=== PATIENT | female | born 2000 | race Caucasian/White ===

== ENCOUNTER 2023-05-15 15:13 | Inpatient (IN) | payer BC, MEDICAID, SELFPAY ==
[2023-05-15] VITALS (9 sets, daily range): BP systolic 83–127; BP diastolic 60–88; PULSE 101–142; RESP 17–20; TEMP 37.3–39.3; O2SAT 95–98; BMI 32.1; BMI 32.8
--- NOTE | 2023-05-15 16:17 | EDRME_ITS ---
Rapid Medical Screening Exam [facility] Arrival date/time: 05/15/23 15:13 Is a 23-year-old female presents to the emergency department with complaints of fever x 8 days. Abnormal urine and tachycardia sent by her PCP rule out sepsis. I have greeted and performed a focused initial assessment of this patient. Initial appropriate labs ordered at this time. A comprehensive ED assessment and evaluation of the patient and analysis of all test and completion of medical decision making process will be conducted by additional ED provider. Chief Complaint: Abdominal Pain Time Seen by Provider: 05/15/23 15:43 Vital signs: Vital Signs Temperature 99.2 F 05/15/23 15:33 Pulse Rate 130 H 05/15/23 15:33 Respiratory Rate 18 05/15/23 15:33 Blood Pressure 105/70 05/15/23 15:33 Pulse Oximetry (%) 97 05/15/23 15:33 Oxygen Delivery Method Room Air 05/15/23 15:33
[2023-05-15 16:44] LABS: Lactate (Lactic Acid) 1.6 mMol/L (0.4-2.0)
[2023-05-15 16:47] LABS: Basophils % (Auto) 0 % (0-2.5); Eosinophils % (Auto) 0 % (0-10); Hematocrit 40.8 % (36.0-46.0); Hemoglobin 12.9 g/dL (12.0-16.0); Immature Granulocytes % (Auto) 1 % (0-0); Immature Granulocytes Auto 0.11 Thou/mm3 (0.00-0.00); Lymphocytes # (Auto) 0.7 Thou/mm3 (1.0-4.8); Lymphocytes % (Auto) 4 % (10-50); Mean Corpuscular HGB Conc 31.6 g/dl (31.0-37.0); Mean Corpuscular Hemoglobin 26.8 pg (25.0-35.0); Mean Corpuscular Volume 85 fL (80-100); Monocytes # (Auto) 0.8 Thou/mm3 (0.0-0.8); Monocytes % (Auto) 4 % (0-12); Neutrophils # (Auto) 15.8 Thou/mm3 (1.8-7.7); Neutrophils % (Auto) 91 % (37-80); Nucleated Red Blood Cell % 0 /100 WBC (0); Platelet Count 433 Thou/mm3 (140-440); RDW Standard Deviation 41.6 fL (36.4-46.3); Red Blood Count 4.81 Miln/mm3 (4.00-5.20); White Blood Count 17.3 Thou/mm3 (3.6-11.0)
[2023-05-15 17:13] LABS: Strep A Rapid Negative (Negative)
[2023-05-15 17:19] LABS: Alanine Aminotransferase 11 U/L (10-49); Albumin, Serum 4.7 gm/dL (3.5-5.0); Albumin/Globulin Ratio 1.7 (1.2-2.2); Alkaline Phosphatase 93 U/L (46-116); Anion Gap 8 (7-16); Aspartate Amino Transferase 18 U/L (0-34); BUN/Creatinine Ratio 9 Ratio (12-20); Bilirubin,Total 0.9 mg/dL (0.3-1.2); Blood Urea Nitrogen 9 mg/dL (9-23); Calcium 9.4 mg/dL (8.3-10.6); Calcium (Corrected) 9.4 mg/dL (8.5-10.1); Carbon Dioxide 24.6 mMol/L (20.0-31.0); Chloride 104 mMol/L (98-107); Globulin 2.8 gm/dL (2.3-3.5); Glucose 112 mg/dL (74-106); Lipase 29 U/L (12-53); Osmolality,Calculated 273 (275-295); Potassium 3.9 mMol/L (3.4-5.1); Procalcitonin 0.82 ng/ml (0.0-0.49); Sodium 137 mMol/L (136-145); Total Protein 7.5 gm/dL (5.7-8.2); Troponin I < 0.002 ng/mL (0.0-0.045); eGFR > 60 See Note
[2023-05-15 17:30] LABS: Collection Type, Urine Clean Catch
[2023-05-15 17:45] LABS: Bacteria,Urine Rare; Bilirubin,Urine Negative (Negative); Blood,Urine Trace (Negative); Color,Urine Yellow (Lt Yel-Yel); Glucose, Urine Negative (Negative); Hyaline Casts,Urine < 1 /hpf (0-1); Ketones,Urine 1+ (Negative); Leukocyte Esterase,Urine Positive (Negative); Nitrite,Urine Positive (Negative); Protein,Urine 2+ (Neg - Trace); RBC,Urine 4 /hpf (0-3); Specific Gravity,Urine 1.024 (1.001-1.035); Squamous Epithelial Cell,Urine 5 /hpf (0-5); Urobilinogen,Urine Negative mg/dL (0.0-1.0); WBC,Urine 63 /hpf (0-5)
[2023-05-15 17:46] LABS: Clarity,Urine Hazy (Clear/Hazy)
[2023-05-15 17:48] LABS: HCG Qualitative,Urine Negative
--- NOTE | 2023-05-15 18:46 | PC.NURSE ---
Pt arrived from [facility] after sepsis alert being called. Pt states she was told by her PCP to come in due to her HR being too high . Minoo is GCS 15 NAD noted. LIves at home with her .
[2023-05-15] MEDS: ACETAMINOPHEN 325 MG TABLET 650 MG PO (19:48)
--- NOTE | 2023-05-15 20:38 | EDNOTE_ITS ---
ED Female Urogenital RME/HPI General Chief complaint: Abdominal Pain Stated complaint: dysuria, abd pain, fatigue, ALEXANDER x 8 days Time Seen by Provider: 05/15/23 15:43 Arrival date/time: 05/15/23 15:13 Limitations: no limitations RME / HPI RME / HPI Narrative: 23-year-old female with no chronic medical history is here today with a 8-day history of frequent dysuria and foul-smelling urine. She developed a fever 2 days ago. She went to see primary care provider later this today and found to be febrile and tachycardic. She is sent here to rule out urosepsis. She denies any nausea or vomiting. She has no changes in bowel movements. She has no runny nose, congestion, cough. She denies any past surgeries. She states her mother had anaphylactic shock to penicillin. Related Data Home Medications Medication Instructions Recorded Confirmed acetaminophen 325 mg tablet 1,000 mg PO TID PRN Pain 01/05/21 01/05/21 (Tylenol) guaifenesin 100 mg/5 mL oral liquid 200 mg PO Q4H PRN Cough 01/05/21 01/05/21 loratadine 10 mg tablet (Claritin) 10 mg PO QDAY 01/05/21 01/05/21 vitamin-ferrous fumarate 1 tab PO DAILY 01/05/21 01/05/21 28 mg iron-folic acid 800 mcg tablet ( Vitamins with Minerals) Previous Rx's Medication Instructions Recorded cephalexin 500 mg capsule 500 mg PO TID #30 caps 10/25/22 Allergies Allergy/AdvReac Type Severity Reaction Status Date / Time No Known Allergies Allergy Verified 05/15/23 15:15 Review of Systems Review of Systems Systems Reviewed: All systems reviewed, normal except as documented ED Exam General Limitations: Present no limitations General appearance: Present alert and other (Ill-appearing but nontoxic) Head Head exam: Present atraumatic Eye Eye exam: Present normal appearance, PERRL and EOMI ENT ENT exam: Present normal exam, normal oropharynx and mucous membranes moist Neck Neck exam: Present normal inspection, full ROM and trachea midline Chest Chest inspection: Present normal inspection and symmetric chest wall rise Respiratory Respiratory exam: Present normal lung sounds bilaterally Cardiovascular Cardiovascular exam: Present tachycardia Abdominal Exam Abdominal tenderness: Present mild Extremities Exam Extremities exam: Present normal inspection and full ROM Back Exam Back exam: Present normal inspection and full ROM Neurological Exam Neurological exam: Present alert and oriented X3 Psychiatric Psychiatric exam: Present normal affect and normal mood Skin Skin exam: Present warm, dry, intact and normal color Course Quality Measures none Orders Category Date Time Status Bedside COVID-19 Antigen Test NOW Care 05/15/23 16:04 Completed Bedside COVID-19 Antigen Test NOW Care 05/15/23 20:41 Completed Bedside Influenza A&B Antigen Test NOW Care 05/15/23 16:05 Completed Bedside Influenza A&B Antigen Test NOW Care 05/15/23 20:41 Completed EKG (ED ONLY) *Do not use* NOW Care 05/15/23 16:05 Completed IV [Insert IV] NOW Care 05/15/23 16:[address] abdomen pelvis wo con Stat Exams 05/15/23 20:41 Completed XR chest 1V Stat Exams 05/15/23 20:41 Completed Blood Culture (Lab) Stat Lab 05/15/23 16:25 Results CBC Stat Lab 05/15/23 16:25 Completed Comprehensive Metabolic Panel Stat Lab 05/15/23 16:25 Completed HCG Qualitative,Urine Stat Lab 05/15/23 17:05 Completed Lactate (Lactic Acid) Stat Lab 05/15/23 16:25 Completed Lipase Stat Lab 05/15/23 16:25 Completed Procalcitonin Stat Lab 05/15/23 16:25 Completed Strep A Rapid Stat Lab 05/15/23 16:30 Completed Troponin I Stat Lab 05/15/23 16:25 Completed Urinalysis Stat Lab 05/15/23 17:05 Completed Urine Culture Stat Lab 05/16/23 01:25 Received Acetaminophen Tab [Tylenol Tab] Med 05/15/23 20:37 Discontinued 1,000 mg PO X1 ONE Acetaminophen Tab [Tylenol Tab] Med 05/15/23 20:43 Discontinued 325 mg PO X1 ONE Acetaminophen Tab [Tylenol Tab] Med 05/15/23 19:45 Discontinued 650 mg PO X1 ONE CIPROFLOXACIN/D5w 400 MG IVPB [Cipro Ivpb] Med 05/15/23 20:38 Discontinued 400 mg in 200 ml IV Q12HR Ringers Lactated 1000 ml [Lactated Ringers] 1,000 ml Med 05/15/23 21:43 Active IV 150 mls/hr Sodium Chloride 0.9% 1000 ml [Ns] 2,055 ml Med 05/15/23 20:36 Discontinued IV 2,055 mls/hr cefTRIAXone/D5w 1gm IV premix [Rocephin/D5w 1gm IV Med 05/16/23 09:00 Active premix] 50 ml IV QDAY Vital Signs Vital signs: Vital Signs Temperature 99.2 F 05/15/23 15:33 Pulse Rate 130 H 05/15/23 15:33 Respiratory Rate 18 05/15/23 15:33 Blood Pressure 105/70 05/15/23 15:33 Pulse Oximetry (%) 97 05/15/23 15:33 Oxygen Delivery Method Room Air 05/15/23 15:33 Urogenital - Female MDM Narrative MDM Narrative:: 23-year-old female with no past medical history is here today with suspicion of urosepsis. She developed frequent dysuria 8 days ago and developed a fever 2 days ago. She was seen in clinic for this and was found to be tachycardic and febrile. She was sent here for further evaluation. Patient arrived she remained tachycardic and febrile. She is normotensive at that time. Workup was initiated. Patient has a elevated white count of 17,000. She has no lactic acidosis. Metabolic panel is unremarkable. Urine is consistent with urinary tract infection. She has numerous leukocytes and few erythrocytes. I do believe this is a clean-catch. A CT of the abdomen pelvis was obtained to rule out other sources of potential sepsis in addition to a chest x-ray. Chest x-ray reveals clear expanded lungs without a mass or infiltrate. CT abdomen/pelvis reveals per radiology report bilateral pyelonephritis without obstructive stone. EKG was obtained today at 1613 p.m. which revealed sinus tachycardia at 121 bpm. There are no ST changes. There is no dynamic T waves. Patient's symptoms have improved throughout the ER course. She was given IV fluids in addition to IV ciprofloxacin. I do believe the patient warrants admission at this time. Case discussed with resident physician, Dr. Joseph who agrees to accept the admission. Patient data External records reviewed:: [facility] previous records Clinical information provided by:: patient and family Social determinants that could affect healthcare access:: none Patient has the following chronic illnesses:: n/a How is presenting disease/condition affected by chronic disease/condition?: no chronic disease Evaluation data The following diagnostics were reviewed and interpreted by me:: lab results, radiology exam(s) and EKG tracing(s) Lab and/or radiology exams considered but not ordered:: n/a Interpretation Summary: Leukocytosis, pyelonephritis, sepsis Medications / Prescriptions Medications or Prescriptions considered but not ordered:: n/a Medication administrations:: Medication Administration History Acetaminophen (Acetaminophen 325 Mg Tablet) 650 mg PO Q6H PRN PRN Reason: Fever >101.5 Stop: 06/14/23 22:31 Last Admin: 05/16/23 22:21 Dose: 650 mg Documented By: Admin: 05/16/23 12:49 Dose: 650 mg Documented By: LOVE Heparin Sodium (Porcine) (Heparin Sod Inj 5000 Unit/Ml Vial) 5,000 unit SC Q12H [facility] Stop: 05/29/23 22:44 Last Admin: 05/16/23 22:08 Dose: 5,000 unit Documented By: Co-signed By: Admin: 05/16/23 10:59 Dose: 5,000 unit Documented By: LOVE Co-signed By: WIN Admin: 05/16/23 00:20 Dose: 5,000 unit Documented By: Co-signed By: PHONG Lactated Ringer's (Lactated Ringers) 1,000 mls @ 150 mls/hr IV .Q6H40M [facility] Stop: 06/14/23 21:42 Last Admin: 05/16/23 16:57 Dose: 150 mls/hr Documented By: Infusion: 05/16/23 15:47 Dose: 150 mls/hr Documented By: Admin: 05/16/23 11:11 Dose: Not Given Documented By: LOVE Non-Admin Reason: Wrong Time Admin: 05/16/23 09:06 Dose: 150 mls/hr Documented By: Infusion: 05/16/23 06:40 Dose: 150 mls/hr Documented By: Admin: 05/15/23 23:59 Dose: 150 mls/hr Documented By: Ceftriaxone Sodium/Dextrose (Rocephin/D5w 1gm Iv Premix) 50 mls @ 100 mls/hr IV QDAY [facility] Stop: 05/22/23 21:43 Last Infusion: 05/16/23 09:40 Dose: 0 mls/hr Documented By: Admin: 05/16/23 09:06 Dose: 100 mls/hr Documented By: LOVE Ketorolac Tromethamine (Ketorolac Inj 30 Mg/Ml Vial) 15 mg IVP Q12H PRN PRN Reason: PAIN SCALE 1-3 (mild Stop: 05/21/23 14:15 Last Admin: 05/16/23 14:24 Dose: 15 mg Documented By: LOVE Morphine Sulfate (Morphine Sulf Inj 4 Mg/Ml Vial) 1 mg IV Q4H PRN PRN Reason: PAIN SCALE 4-10(Mod-Sev Stop: 05/21/23 14:10 Ondansetron HCl (Ondansetron Inj 2 Mg/Ml Vial 2 Ml) 4 mg IV Q6H PRN; Protocol PRN Reason: NAUSEA OR VOMITING Stop: 06/14/23 22:31 Last Admin: 05/16/23 14:01 Dose: 4 mg Documented By: Admin: 05/16/23 02:26 Dose: 4 mg Documented By: Discontinued Medications Acetaminophen (Acetaminophen 325 Mg Tablet) 650 mg PO X1 ONE Stop: 05/15/23 19:46 Last Admin: 05/15/23 19:48 Dose: 650 mg Documented By: ALEENA Acetaminophen (Acetaminophen 325 Mg Tablet) 1,000 mg PO X1 ONE Stop: 05/15/23 20:38 Last Admin: 05/15/23 21:51 Dose: Not Given Documented By: ALEENA Non-Admin Reason: Discontinued Acetaminophen (Acetaminophen 325 Mg Tablet) 325 mg PO X1 ONE Stop: 05/15/23 20:44 Last Admin: 05/15/23 21:03 Dose: 325 mg Documented By: ALEENA Acetaminophen (Acetaminophen 325 Mg Tablet) 650 mg PO Q6H PRN PRN Reason: Fever >101.5 Stop: 06/14/23 22:31 Acetaminophen (Acetaminophen 325 Mg Tablet) 650 mg PO Q6H PRN PRN Reason: PAIN SCALE 1-3 (mild Stop: 06/14/23 22:31 Acetaminophen (Acetaminophen 325 Mg Tablet) 325 mg PO X1 ONE Stop: 05/16/23 02:15 Last Admin: 05/16/23 02:30 Dose: 325 mg Documented By: Acetaminophen (Acetaminophen 325 Mg Tablet) 650 mg PO Q6H PRN PRN Reason: PAIN SCALE 1-3 (mild Stop: 06/14/23 22:31 Acetaminophen (Acetaminophen 325 Mg Tablet) 325 mg PO X1 ONE Stop: 05/16/23 04:04 Last Admin: 05/16/23 04:16 Dose: 325 mg Documented By: Al Hydrox/Mg Hydrox/Simethicone (Mg Hyd/Al Hyd/Jorje (Maalox Reg) Susp 30 Ml Udc) 30 ml PO X1 ONE Stop: 05/16/23 17:31 Last Admin: 05/16/23 17:39 Dose: 30 ml Documented By: MOI Sodium Chloride (Ns) 2,055 mls @ 2,055 mls/hr 30 ml/kg infuse over 60 min (2055 ml) IV .Q1H ONE Stop: 05/15/23 21:35 Last Admin: 05/15/23 21:05 Dose: 2,055 mls/hr Documented By: ALEENA Ciprofloxacin/Dextrose (Cipro Ivpb) 400 mg in 200 mls @ 200 mls/hr IV Q12HR [facility] Stop: 05/22/23 20:37 Last Infusion: 05/15/23 22:16 Dose: 0 mls/hr Documented By: Admin: 05/15/23 21:05 Dose: 200 mls/hr Documented By: ALEENA Lactated Ringer's (Lactated Ringers) 500 mls @ 999 mls/hr IV .Q31M ONE Stop: 05/16/23 05:27 Last Admin: 05/16/23 05:15 Dose: 999 mls/hr Documented By: Potassium Phosphate 22.5 mmol/ (Sodium Chloride) 507.5 mls @ 82.778 mls/hr IV X1 ONE Stop: 05/16/23 15:35 Last Infusion: 05/16/23 18:20 Dose: 0 mls/hr Documented By: Admin: 05/16/23 10:57 Dose: 82.778 mls/hr Documented By: LOVE Ibuprofen (Ibuprofen Tab 400 Mg Tablet) 400 mg PO X1 ONE Stop: 05/16/23 20:59 Last Admin: 05/16/23 21:02 Dose: 400 mg Documented By: Ketorolac Tromethamine (Ketorolac Inj 60 Mg/2 Ml Vial) 30 mg IM X1 ONE Stop: 05/16/23 04:57 Last Admin: 05/16/23 05:32 Dose: 30 mg Documented By: see above Consultations Consultation(s) initiated? (list below): No Diagnosis Urogenital Female Differential Diagnosis: urinary tract infection, vaginitis and cystitis Most likely diagnosis given after review of the tests above:: Urosepsis, pyelonephritis Admission Indicated Admission indicated?: indicated Admission Request Was there a request for admission?: Yes Admission Attestation Admission request attestation: Discussed case with [] from Hospitalist service regarding admission. Discussed patients ED course, exam findings, labs, and radiology results. The Hospitalist [agrees,declines] to accept the patient for admission. Disposition Plan Disposition Plan: Admit Critical Care Time Critical Care Time Critical Care Time: Yes Total Critical Care Time (min.): 35 Attestation: 35 minutes spent in critical care. This was spent obtaining history, reviewing test results. Interpreting test results. Ordering additional tests and interventions. Discussing case with attending ER physician. Discussing case with resident hospitalist. Discussing test results and care with the patient and family members. Discharge Plan Plan Patient Disposition: Admit Acute Care w/in Hospital Patient condition on transfer: Stable Problem List Clinical Impression: Pyelonephritis, UTI (urinary tract infection), Sepsis MD Attestation MD Attestation The patient was seen by the midlevel practitioner. I, the co-signing physician, was present during the entire ER visit. While I did not physically examine the patient, I was available for consultation as needed. I agree with the plan and documentation.
--- NOTE | 2023-05-15 20:41 | XR_ITS ---
Examination: AP chest single view Technique: AP upright portable chest single view Exam date and time: May 15, 20232058 hrs. Indications: Fever dysuria today. Findings: Normal heart size No pneumonia or pulmonary edema. The osseous structures are intact Impression: No active disease
--- NOTE | 2023-05-15 20:41 | XR_ITS ---
Examination: CT abdomen and pelvis without contrast. Coronal 3-D reconstructions. Sagittal 2-D reconstructions. Date and time of exam:May 15, 2023 2045 hrs. Indications: Abdominal pain dysuria fever beginning 8 days ago, clinical diagnosis urinary tract infection sepsis CTDI: vol (mGy): 12.5 DLP: (mGycm): 805 Technique: Axial images of the abdomen have been obtained, 3 mm slice thickness Intravenous contrast material has not been administered. Low dose protocols were performed. One or more of the following dose reduction techniques were used; automated exposure control, adjustment of the mA and/or KV according to patient size, use of iterative reconstruction technique. Findings: No focal liver or splenic lesions Splenomegaly AP dimension 13 cm No gallstones No pancreatic mass Moderate bilateral renal parenchymal scar formation, right perinephric stranding and wall enhancement involving both pelvicalyceal systems and the right ureter No renal or ureteral calculi, no hydronephrosis Normal appendix No diverticulitis Anteverted uterus Urinary bladder intact no bladder calculi Osseous structures intact Impression: Findings most consistent with bilateral pyelonephritis
[2023-05-15] MEDS: ACETAMINOPHEN 325 MG TABLET PO (21:03)
[2023-05-15] MEDS: CIPROFLOXACIN/D5w 400 MG IVPB 400 MG/200 ML BAG 200 MG IV (21:05)
[2023-05-15] MEDS: SODIUM CHLORIDE 0.9% 2055 ML IV (21:05)
--- NOTE | 2023-05-15 22:15 | ESHP_ITS ---
I saw and evaluated the patient independently reviewed his chart including lab work and imaging. I agree with the findings and the plan of care as documented in the resident note. Documentation for date of: 05/15/23 HPI History of Present Illness Chief complaint: dysuria History of present illness: Patient is 23 years old female with no past medical history presented on 05/15 complaining of dysuria, lower back pain, foul-smelling urine. She reports that her symptoms started about 8 days ago, during the last 2 days she developed fever, chills, nausea and headache. Today patient went to her PCP who told her she has blood in her urine and sent her to the ED. Patient also did UTI home test which was positive. Patient denied having any vaginal discharge, lesions or abdominal pain. Patient denied having pyelonephritis before but had 2 UTIs during her last . In the ED her blood pressure 105/70, pulse 130, respirations 18, temperature 99.2 ?F, oxygen saturation 97% on room air. Labs revealed WBC 17.3, glucose 112, procalcitonin 0.82. Urinalysis revealed protein 2+, ketones 1+, RBCs 4, WBC 63. Chest x-ray was negative. Abdominal CT scan revealed bilateral pyelonephritis. In the ED patient was given acetaminophen for fever control and 2 L of fluids IV. Patient will be admitted for treatment of pyelonephritis. PMH: None. PSH: None. SH: Denies smoking cigarettes or using illicit drugs. Drinks alcohol socially. FH: None. Allergies: NKA. Medications: None. Review of Systems Review of Systems Narrative Review of Systems: General: + fever and chills. Denies weight loss. HEENT: + dizziness. Denies changes in vision and hearing. Resp: Denies SOB, cough and wheezing. CVS: Denies palpitations and CP. GI: + nausea. Denies abdominal pain, vomiting and diarrhea. : + dysuria, foul-smelling urine. MSK: + low back pain. Denies myalgia and joint pain. Denies rash and pruritus. Neuro: Denies headache and syncope. Psych: Denies recent changes in mood. Denies anxiety and depression. Exam Vital Signs Temp Pulse Resp BP Pulse Ox O2 Del Method 100.8 F H 121 H 17 113/75 95 Room Air 05/15/23 21:10 05/15/23 21:10 05/15/23 21:10 05/15/23 21:10 05/15/23 21:10 05/15/23 21:10 Narrative Exam Gen: Well-developed and well-nourished female. HEENT: NCAT, PERRLA, EOMI, MMM, anicteric conjunctivae. CVS: normal S1 and S2. Sinus tachycardia. No M/R/G. Resp: CTA B/L. No rhonchi, rales, crackles or wheezing. Abd: soft, non-tender, non-distended. No suprapubic tenderness. BS+ in all 4 quadrants. Negative CVA tenderness. MSK: Good ROM in BUE & BLE. No edema or rash. Neuro: CN II-XII grossly intact. Strength 5/5 in BUE & BLE. Alert and oriented x3. Psych: appropriate mood and affect. Results: Labs 05/15/23 16:25 05/15/23 16:25 Labs: Short CBC 05/15/23 Range/Units 16:25 WBC 17.3 H (3.6-11.0) Thou/mm3 Hgb 12.9 (12.0-16.0) g/dL Hct 40.8 (36.0-46.0) % Plt Count 433 (140-440) Thou/mm3 BMP 05/15/23 16:25 Sodium 137 Potassium 3.9 Chloride 104 Carbon Dioxide 24.6 BUN 9 Creatinine 1.0 Glucose 112 H Calcium 9.4 Cardiac Enzymes 05/15/23 Range/Units 16:25 Troponin I < 0.002 (0.0-0.045) ng/mL Liver Function 05/15/23 Range/Units 16:25 Total Bilirubin 0.9 (0.3-1.2) mg/dL AST 18 (0-34) U/L ALT 11 (10-49) U/L Alkaline Phosphatase 93 (46-116) U/L Albumin 4.7 (3.5-5.0) gm/dL Urine 05/15/23 Range/Units 17:05 Urine Color Yellow (Lt Yel-Yel) Urine Clarity Hazy (Clear/Hazy) Urine pH 6.0 (5.0-7.0) Ur Specific [place] 1.024 (1.001-1.035) Urine Protein 2+ A (Neg - Trace) Urine Glucose (UA) Negative (Negative) Quality Measures Quality Measures sepsis Current suspected stage: sepsis Possible source: genitourinary Blood cultures ordered: yes Antibiotic ordered: Yes Medications Home Medications and Allergies Home Medications Medication Instructions Recorded Confirmed Type acetaminophen 325 mg tablet 1,000 mg PO TID PRN Pain 01/05/21 01/05/21 History (Tylenol) guaifenesin 100 mg/5 mL oral liquid 200 mg PO Q4H PRN Cough 01/05/21 01/05/21 History loratadine 10 mg tablet (Claritin) 10 mg PO QDAY 01/05/21 01/05/21 History vitamin-ferrous fumarate 1 tab PO DAILY 01/05/21 01/05/21 History 28 mg iron-folic acid 800 mcg tablet ( Vitamins with Minerals) Allergies Allergy/AdvReac Type Severity Reaction Status Date / Time No Known Allergies Allergy Verified 05/15/23 15:15 Visit Medications Lactated Ringer's (Lactated Ringers) 1,000 mls @ 150 mls/hr IV .Q6H40M [facility] Stop: 06/14/23 21:42 Ceftriaxone Sodium/Dextrose (Rocephin/D5w 1gm Iv Premix) 50 mls @ 100 mls/hr IV QDAY [facility] Stop: 05/22/23 21:43 Discontinued Medications Acetaminophen (Acetaminophen 325 Mg Tablet) 650 mg PO X1 ONE Stop: 05/15/23 19:46 Last Admin: 05/15/23 19:48 Dose: 650 mg Acetaminophen (Acetaminophen 325 Mg Tablet) 1,000 mg PO X1 ONE Stop: 05/15/23 20:38 Last Admin: 05/15/23 21:51 Dose: Not Given Acetaminophen (Acetaminophen 325 Mg Tablet) 325 mg PO X1 ONE Stop: 05/15/23 20:44 Last Admin: 05/15/23 21:03 Dose: 325 mg Sodium Chloride (Ns) 2,055 mls @ 2,055 mls/hr 30 ml/kg infuse over 60 min (2055 ml) IV .Q1H ONE Stop: 05/15/23 21:35 Last Admin: 05/15/23 21:05 Dose: 2,055 mls/hr Ciprofloxacin/Dextrose (Cipro Ivpb) 400 mg in 200 mls @ 200 mls/hr IV Q12HR [facility] Stop: 05/22/23 20:37 Last Admin: 05/15/23 21:05 Dose: 200 mls/hr Assessment & Plan Plan Patient is 23 years old female with no past medical history presented on 05/15 complaining of dysuria, lower back pain, foul-smelling urine. #Sepsis 2/2 pyelonephritis. #Bilateral pyelonephritis. -Patient meets 2/4 SIRS criteria for sepsis: Leukocytosis and tachycardia. Source is pyelonephritis. Procalcitonin 0.82. -Patient presented with fever, chills, lower back pain, foul-smelling urine, dysuria, headache, nausea. -Urinalysis revealed protein 2+, ketones 1+, RBCs 4, WBC 63. -CT of the abdomen revealed bilateral pyelonephritis. Plan: -started on ceftriaxone IV. -Started on LR at the rate of 150 cc/h. -Fever control with acetaminophen as needed. -Blood culture and urine culture obtained. #Hyperglycemia. -Patient presented that his glucose of 112. -Does not have any history of diabetes. Plan: -Repeat glucose a.m., consider A1c testing. FEN: Regular diet. DVT prophylaxis: Heparin SC. GI prophylaxis: None. Dispo: MedSurg. CODE STATUS: Full code. Plan of care discussed with attending Dr. Joseph and PGY [address] Cagle. Quirino Dean MD, PGY 1. Disclaimer: This note was dictated by speech recognition. Minor errors in township supervisor may be present due to voice recognition software. Patient coming in with bilateral flank pain and recent UTI followed by PCP. Patient noted to have bilateral pyelonephritis on imaging and will be admitted for sepsis secondary to UTI. Pending urine cultures and blood cultures, patient on IV antibiotics and fluids we will narrow down pending results. Patient seen and assessed at bedside. Case discussed with medicine team. I agree with the above assessment and plan. Danie Cagle MD PGY 2
[2023-05-15] MEDS: RINGERS LACTATED 1000 ML 1,000 ML 150 ML IV (23:59)
[2023-05-16] VITALS (17 sets, daily range): BP systolic 108–120; BP diastolic 53–74; PULSE 80–138; RESP 16–18; TEMP 36.4–39.6; O2SAT 95–97
[2023-05-16] MEDS: HEPARIN SOD INJ 5000 UNIT/ML VIAL SC ×3 (00:20→22:08)
[2023-05-16] MEDS: ACETAMINOPHEN 325 MG TABLET PO ×2 (02:30→04:16)
[2023-05-16] MEDS: RINGERS LACTATED 500 ML 500 ML 999 ML IV (05:15)
[2023-05-16] MEDS: KETOROLAC INJ 60 MG/2 ML VIAL 30 MG IM (05:32)
[2023-05-16 06:00] LABS: Basophils % (Auto) 0 % (0-2.5); Eosinophils % (Auto) 0 % (0-10); Hematocrit 33.2 % (36.0-46.0); Hemoglobin 10.5 g/dL (12.0-16.0); Immature Granulocytes % (Auto) 1 % (0-0); Immature Granulocytes Auto 0.12 Thou/mm3 (0.00-0.00); Lymphocytes # (Auto) 0.5 Thou/mm3 (1.0-4.8); Lymphocytes % (Auto) 3 % (10-50); Mean Corpuscular HGB Conc 31.6 g/dl (31.0-37.0); Mean Corpuscular Hemoglobin 26.7 pg (25.0-35.0); Mean Corpuscular Volume 85 fL (80-100); Monocytes # (Auto) 1.7 Thou/mm3 (0.0-0.8); Monocytes % (Auto) 10 % (0-12); Neutrophils # (Auto) 14.8 Thou/mm3 (1.8-7.7); Neutrophils % (Auto) 87 % (37-80); Nucleated Red Blood Cell % 0 /100 WBC (0); Platelet Count 299 Thou/mm3 (140-440); RDW Standard Deviation 42.2 fL (36.4-46.3); Red Blood Count 3.93 Miln/mm3 (4.00-5.20); White Blood Count 17.1 Thou/mm3 (3.6-11.0)
[2023-05-16 06:41] LABS: Albumin, Serum 3.5 gm/dL (3.5-5.0); Albumin/Globulin Ratio 1.7 (1.2-2.2); Alkaline Phosphatase 74 U/L (46-116); Anion Gap 9 (7-16); Aspartate Amino Transferase 14 U/L (0-34); BUN/Creatinine Ratio 10 Ratio (12-20); Bilirubin,Total 0.6 mg/dL (0.3-1.2); Blood Urea Nitrogen 8 mg/dL (9-23); Calcium 7.9 mg/dL (8.3-10.6); Calcium (Corrected) 8.3 mg/dL (8.5-10.1); Carbon Dioxide 21.5 mMol/L (20.0-31.0); Chloride 109 mMol/L (98-107); Creatinine (Component) 0.8 mg/dL (0.6-1.3); Estimated Creatinine Clearance 140.3 mL/min (>60); Globulin 2.1 gm/dL (2.3-3.5); Glucose 128 mg/dL (74-106); Magnesium 1.6 mg/dL (1.6-2.6); Osmolality,Calculated 277 (275-295); Phosphorous 1.6 mg/dL (2.4-5.1); Potassium 3.5 mMol/L (3.4-5.1); Sodium 139 mMol/L (136-145); Total Protein 5.6 gm/dL (5.7-8.2); eGFR > 60 See Note
[2023-05-16 06:42] LABS: Alanine Aminotransferase 8 U/L (10-49)
[2023-05-16] MEDS: RINGERS LACTATED 1000 ML 1,000 ML 150 ML IV ×3 (09:06→23:39)
[2023-05-16] MEDS: cefTRIAXone/D5w 1gm IV premix 50 ML IV (09:06)
[2023-05-16] MEDS: POTASSIUM PHOS 22.5 MMOL in SODIUM CHLORIDE 0.9% 500 ML 500 ML 82.778 MMOL IV (10:57)
[2023-05-16] MEDS: ACETAMINOPHEN 325 MG TABLET 650 MG PO ×2 (12:49→22:21)
--- NOTE | 2023-05-16 12:50 | PC.NURSE ---
Spoke with JERRY Mariscal to give Tylenol for head ache.
[2023-05-16] MEDS: KETOROLAC INJ 30 MG/ML VIAL 15 MG IVP (14:24)
--- NOTE | 2023-05-16 16:04 | PC.SS ---
Raisa Murray is 23 year old female admitted to Med-Surg for Sepsis 2/2 pyelonephritis. SS conducted bedside contact with the patient to complete initial assessment and to discuss discharge planning. Patient confirmed demographic information. Patient identifies her Tristin Reeder [phone] as her surrogate decision maker. Patient resides at home with her parents. Pt states she is able to complete all ADL?s independently, no need for any source of DME. Pts PCP is Dr. Kenneth Brooks at [facility] and her pharmacy of choice is [facility] on [address]. DC options discussed pt plans on returning home, will provide transportation on behalf of the pt. No further needs identified. SS will remain available for any additional needs.
--- NOTE | 2023-05-16 16:23 | EKG_ITS ---
[facility] Test Date: 2023-05-16 Pat Name: SHANE PEREZ [facility] Eyeglass Fitter: MELISSA : 2000 Requested By: Jose Alfredo Sim Order Number: [id number] Reading MD: Jose Alfredo Sim Measurements Intervals [place] Rate: 94 P: 39 FL: 174 QRS: 63 QRSD: 106 T: 56 QT: 369 QTc: 462 Interpretive Statements SINUS RHYTHM POSSIBLE LEFT ATRIAL ENLARGEMENT No previous ECG available for comparison /store/S0/[id number]
[2023-05-16] MEDS: MG HYD/AL HYD/SIME (Maalox Reg) SUSP 30 ML UDC PO (17:39)
[2023-05-16] MEDS: IBUPROFEN TAB 400 MG TABLET PO (21:02)
--- NOTE | 2023-05-16 21:19 | ESPR_ITS ---
I Jordan Aguiar MD, PGY-3 have discussed and was present for the essential components of the history, physical examination, diagnosis, and treatment plan with the Supervisor Irrigation Physician. I agree with the patient's care as documented by the Supervisor Irrigation and amended herein by me.? Documentation for date of: 05/16/23 Subjective Subjective Interval history: Ms Murray is an overnight admission whose care is assumed by hospitalist team B. She has been relatively uncomfortable through the morning with intermittent chills, nausea, headache. She has mild bilateral CVA tenderness. Continuing overnight management with IVF, empiric ceftriaxone, tylenol and ketorolac for febrile discomfort, and adding morphine for as needed severe pain management. Exam Vital Signs Temp Pulse Resp BP Pulse Ox O2 Del Method 103.2 F H 111 H 18 110/53 L 96 Room Air 05/16/23 21:02 05/16/23 16:07 05/16/23 16:07 05/16/23 16:07 05/16/23 16:07 05/16/23 16:07 Narrative Exam General: AAO. Well developed, hydrated and nourished. Appears stated age. HEENT: NC,AT. EOMI grossly intact. MMM. Neck: Supple. Trachea is midline. No JVD. Chest: Symmetric chest expansion. Cardiac: RRR. Normal S1 and S2. No M/R/G. Resp: No increased work of breathing. No adventitious lung sounds. Abd: Soft, nontender, nondistended. Mild CVA tenderness bilaterally. Extrem: Atraumatic in appearance without deformity. No pedal edema. Skin: Warm, dry and intact without overtly apparent rash or lesions. Neuro: AAO. Moves all 4. No deficit of speech. CNII-XII grossly intact. Psych: Appropriate mood with reactive and congruent affect. Objective Labs 05/17/23 05:43 05/17/23 05:43 Labs: Laboratory Results - last 24 hr 05/16/23 05/16/23 05:15 05:15 WBC 17.1 H RBC 3.93 L Hgb 10.5 L D Hct 33.2 L MCV 85 MCH 26.7 MCHC 31.6 RDW Std Deviation 42.2 Plt Count 299 D Neut % (Auto) 87 H Lymph % (Auto) 3 L [place] % (Auto) 10 Eos % (Auto) 0 Baso % (Auto) 0 Neut # (Auto) 14.8 H Lymph # (Auto) 0.5 L [place] # (Auto) 1.7 H Eos # (Auto) 0.0 Baso # (Auto) 0.0 Immature Gran # (Auto) 0.12 H Absolute Nucleated RBC 0.00 Immature Gran % 1 H Nucleated RBC % 0 Sodium 139 Potassium 3.5 Chloride 109 H Carbon Dioxide 21.5 Anion Gap 9 BUN 8 L Creatinine 0.8 Estim Creat Clear Calc 140.3 eGFR > 60 BUN/Creatinine Ratio 10 L Glucose 128 H Calculated Osmolality 277 Calcium 7.9 L D Corrected Calcium 8.3 L Phosphorus 1.6 L Magnesium 1.6 Total Bilirubin 0.6 AST 14 ALT 8 L Alkaline Phosphatase 74 D Total Protein 5.6 L Albumin 3.5 D Globulin 2.1 L Albumin/Globulin Ratio 1.7 Quality Measures Quality Measures sepsis Current suspected stage: sepsis Possible source: genitourinary Blood cultures ordered: yes Antibiotic ordered: Yes Assessment & Plan Assessment Current Active Medications: Generic Name Dose Route Start Last Admin Trade Name Freq PRN Reason Stop Dose Admin Acetaminophen 650 mg 05/16/23 02:18 05/16/23 12:49 Acetaminophen 325 Mg Tablet PO 06/14/23 22:31 650 mg Q6H PRN Administration Fever >101.5 Heparin Sodium (Porcine) 5,000 unit 05/15/23 22:45 05/16/23 10:59 Heparin Sod Inj 5000 Unit/Ml Vial SC 05/29/23 22:44 5,000 unit Q12H JACOB Administration Lactated Ringer's 1,000 mls @ 150 mls/hr 05/15/23 21:43 05/16/23 16:57 Lactated Ringers IV 06/14/23 21:42 150 mls/hr .Q6H40M JACOB Administration Ceftriaxone Sodium/Dextrose 50 mls @ 100 mls/hr 05/16/23 09:00 05/16/23 09:40 Rocephin/D5w 1gm Iv Premix IV 05/22/23 21:43 Infused QDAY JACOB Infusion Ketorolac Tromethamine 15 mg 05/16/23 14:16 05/16/23 14:24 Ketorolac Inj 30 Mg/Ml Vial IVP 05/21/23 14:15 15 mg Q12H PRN Administration PAIN SCALE 1-3 (mild Morphine Sulfate 1 mg 05/16/23 14:11 Morphine Sulf Inj 4 Mg/Ml Vial IV 05/21/23 14:10 Q4H PRN PAIN SCALE 4-10(Mod-Sev Ondansetron HCl 4 mg 05/15/23 22:32 05/16/23 14:01 Ondansetron Inj 2 Mg/Ml Vial 2 Ml IV 06/14/23 22:31 4 mg Q6H PRN Administration NAUSEA OR VOMITING Protocol Plan Ms Murray is a 23 YO F without PMHx who presents with dysuria, fever, chills, urinalysis consistent with UTI, and imaging findings consistent with pyelonep hritis, admitted for management of sepsis secondary to same. On empiric ceftriaxone and IVF, supportive care with antiemetics, antipyrretics, and morphine as needed for pain. Blood and urine cx pending. #Sepsis (3/4 SIRS, source:) secondary to #Acute complicated urinary tract infection #Acute pyelonephritis Patient presented febrile, tachycardic, with leukocytosis. Hx fever, chills, lower back pain, foul-smelling urine, dysuria, headache, nausea. UA: protein 2+, ketones 1+, RBCs 4, WBC 63. CT Abd/pelv demonstrating moderate bilateral renal parenchymal scar formation, right perinephric stranding and wall enhancement involving both pelvicalyceal systems and the right ureter S/p 30cc/kg sepsis protocol fluids -Continue ceftriaxone IV (05/15-active) -Continue IVF -Antiemetic, antipyrretics as needed -Morphine as needed for pain management -blood/urine cx pending, f/u #Hypophosphatemia - Replace and continue to monitor renal panel Diet: Regular VTE: Defer chemical in ambulatory patient; SCDs Qshift Lines: PIV Dispo: MedSurg for evaluation and management of sepsis secondary to pyelonephritis requiring IV antibiotics Med rec: complete Code: full Patient discussed with attending sleep technician Dr. Duff and senior resident Dr. Aguiar PGY3 Lion Dewitt PGY1 Attending Provider Attestation/Addendum I reviewed labs, imaging, EKG, home medications and prior available records. Face to face evaluation was performed by me. I have personally examined the patient and discussed assessment and plan with the IM team. I reviewed the note above and agree with the plan with exceptions as below. Sepsis secondary to acute pyelonephritis: Continue IV ceftriaxone. Follow-up blood and urine cultures. Manage pain and nausea as needed.
[2023-05-17] VITALS: BP 121/77; PULSE 67; RESP 18; TEMP 37.2; O2SAT 96
[2023-05-17 04:00] VITALS: BP 124/73; PULSE 91; RESP 18; TEMP 36.5; O2SAT 98
[2023-05-17 06:10] LABS: Basophils % (Auto) 0 % (0-2.5); Eosinophils # (Auto) 0.1 Thou/mm3 (0.0-0.5); Eosinophils % (Auto) 0 % (0-10); Hematocrit 30.9 % (36.0-46.0); Hemoglobin 9.7 g/dL (12.0-16.0); Immature Granulocytes % (Auto) 1 % (0-0); Immature Granulocytes Auto 0.08 Thou/mm3 (0.00-0.00); Lymphocytes # (Auto) 1.2 Thou/mm3 (1.0-4.8); Lymphocytes % (Auto) 10 % (10-50); Mean Corpuscular HGB Conc 31.4 g/dl (31.0-37.0); Mean Corpuscular Hemoglobin 26.6 pg (25.0-35.0); Mean Corpuscular Volume 85 fL (80-100); Monocytes # (Auto) 1.3 Thou/mm3 (0.0-0.8); Monocytes % (Auto) 10 % (0-12); Neutrophils # (Auto) 9.7 Thou/mm3 (1.8-7.7); Neutrophils % (Auto) 79 % (37-80); Nucleated Red Blood Cell % 0 /100 WBC (0); Platelet Count 261 Thou/mm3 (140-440); RDW Standard Deviation 42.5 fL (36.4-46.3); Red Blood Count 3.64 Miln/mm3 (4.00-5.20); White Blood Count 12.4 Thou/mm3 (3.6-11.0)
[2023-05-17] MEDS: RINGERS LACTATED 1000 ML 1,000 ML 150 ML IV (06:42)
[2023-05-17 06:53] LABS: Alanine Aminotransferase 8 U/L (10-49); Albumin, Serum 3.2 gm/dL (3.5-5.0); Albumin/Globulin Ratio 1.7 (1.2-2.2); Alkaline Phosphatase 74 U/L (46-116); Anion Gap 4 (7-16); Aspartate Amino Transferase < 8 U/L (0-34); BUN/Creatinine Ratio 10 Ratio (12-20); Bilirubin,Total 0.3 mg/dL (0.3-1.2); Blood Urea Nitrogen 7 mg/dL (9-23); Calcium 8.3 mg/dL (8.3-10.6); Calcium (Corrected) 8.9 mg/dL (8.5-10.1); Carbon Dioxide 26.6 mMol/L (20.0-31.0); Chloride 113 mMol/L (98-107); Creatinine (Component) 0.7 mg/dL (0.6-1.3); Estimated Creatinine Clearance 160.3 mL/min (>60); Globulin 1.9 gm/dL (2.3-3.5); Glucose 94 mg/dL (74-106); Osmolality,Calculated 284 (275-295); Phosphorous 2.4 mg/dL (2.4-5.1); Potassium 4.1 mMol/L (3.4-5.1); Sodium 144 mMol/L (136-145); Total Protein 5.1 gm/dL (5.7-8.2); eGFR > 60 See Note
[2023-05-17 08:00] VITALS: BP 132/97; PULSE 98; RESP 14; TEMP 36.1; O2SAT 98
[2023-05-17] MEDS: KETOROLAC INJ 30 MG/ML VIAL 15 MG IVP (08:25)
[2023-05-17] MEDS: cefTRIAXone/D5w 1gm IV premix 50 ML IV (08:26)
[2023-05-17 12:00] VITALS: BP 139/89; PULSE 88; RESP 16; TEMP 36.4; O2SAT 96
--- NOTE | 2023-05-17 14:02 | PD.ADDPROG ---
Addendum Progress Note Addendum Date of report being addended: 05/17/23 Narrative: I reviewed labs, imaging, EKG, home medications and prior available records. Face to face evaluation was performed by me. I have personally examined the patient and discussed assessment and plan with the IM team. I reviewed the note above and agree with the plan with exceptions as below. Sepsis secondary to acute pyelonephritis: Patient spiked a fever overnight. Patient's pain is improving. WBC is downtrending. Given that the patient had a fever overnight, will keep the patient for today. Continue IV ceftriaxone. Follow-up urine and blood cultures.
[2023-05-17 16:00] VITALS: BP 125/85; PULSE 92; RESP 16; TEMP 36.4; O2SAT 96
--- NOTE | 2023-05-17 16:20 | ESDS_ITS ---
Planned Discharge Date 05/17/2023 DS: Providers Provider Date of admission: 05/15/23 22:32 Primary care physician: Kenneth Brooks MD Admitting Provider: Doris Joseph MD Attending Provider on Admission: Doris Joseph MD Attending Provider on DC: Ant Duff MD Discharging Provider: Ant Duff MD DS: Diagnosis Discharge Diagnosis (1) Pyelonephritis: Status: Acute (2) UTI (urinary tract infection): Status: Acute (3) Sepsis: Status: Acute Problem List Completed Was Problem List Reviewed/Reconciled?: Yes Hospital Course Hospital Course Hospital course: Ms Murray is a 23 year-old female without prior medical history who presented with dysuria, fever, chills, and urinalysis consistent with urinary tract infection, and imaging findings consistent with pyelonephritis: CT abdomen pelvis demonstrated moderate bilateral renal parenchymal scar formation, right perinephric stranding and wall enhancement involving both pelvicalyceal systems and the right ureter. She was admitted for management of sepsis secondary to acute complicated urinary tract infection. She was initially given sepsis protocol fluid bolus of 30cc/kg, and was started on ceftriaxone for empiric antibiotic coverage. The patient was intermittently febrile and required acetaminophen and non-steroidals for management of discomfort. She seemed to progressively improve in terms of discomfort symptoms as well as frequency of fever. On day 2 of admission the patient reported wanting to leave the hospital, citing wanting to see and be with her children as well as frustration with her care (she cited timing of medications and attention to her needs as sources of frustration). We discussed her pending work-up including blood cultures that had not fully resulted, as well as her need for ongoing intravenous antibiotics for severe complicated urinary tract infection including infection of the kidneys. She expressed understanding of the risks explained to her of forgoing further work-up and treatment, including the risk of worsening illness including abscess formation and renal injury, permanent disability, and . The benefits of staying in the hospital setting were also explained, including immediate proximity to nursing staff and physicians, monitoring, diagnostic testing including completion of her infectious work-up, intravenous antibiotics which she likely requires, and further treatment of arising problems. The patient and her foundry metallurgist at bedside had the opportunity to ask questions about her medical illness. The patient requested a prescription for oral antibiotics to be continued in the outpatient setting. The risks and benefits of this alternative and sub-optimal treatment option were explained, including that it may inadequately treat her infection, potentially prolonging her illness course and potentially resulting in the risks previously discussed including worsening illness, permanent disability, and . The potential benefits included possibly treating her infection despite her intention to leave the hospital. We arrived at the shared decision to attempt continued treatment outpatient given the patient's intention to leave the hospital, and the patient was prescribed levofloxacin 750mg for a 7-day course. She was advised she could return to the hospital at any time, and will need to follow up with her primary care physician as soon as possible, preferably within a week. At the time of our discussion, the patient's mental status was within normal l imits and she demonstrated capacity by expressing understanding of the risks/benefits, appreciation of the situation and the consequences of her decision, was able to reason through treatment options including staying in the hospital and forgoing further treatment, and communicated a clear choice. Thus per her request she was discharged AGAINST MEDICAL ADVICE. Problem list at time of discharge: #Sepsis (3/4 SIRS, source: genitourinary) secondary to #Acute complicated urinary tract infection #Acute pyelonephritis #Hypophosphatemia, resolving Patient discussed with attending childbirth educator Dr. Duff and senior resident Dr. Sim PGY3 Lion Dewitt PGY1 PGY3 Resident Attestation: I discussed with and supervised the PGY1 physician involved in the care of this patient. I personally saw and examined the patient and discussed the assessment and plan with the entire medicine team, including my attending. I agree with the DC summary, as documented above. Patient left AGAINST MEDICAL ADVICE Jose Alfredo Sim MD Status at Discharge Functional status at discharge: independent ambulation Overall status at discharge: patient is not back to baseline Time Spent with Patient Time attestation: Total time spent providing and/or coordinating discharge services: Time spent: Greater than 30 minutes Exam Vital Signs Temp Pulse Resp BP Pulse Ox O2 Del Method 97.6 F 92 16 125/85 H 96 Room Air 05/17/23 16:00 05/17/23 16:00 05/17/23 16:00 05/17/23 16:00 05/17/23 16:00 05/17/23 16:00 Narrative Exam General: AAO. Well developed, hydrated and nourished. Appears stated age. HEENT: NC,AT. EOMI grossly intact. MMM. Neck: Supple. Trachea is midline. No JVD. Chest: Symmetric chest expansion. Cardiac: RRR. Normal S1 and S2. No M/R/G. Resp: No increased work of breathing. No adventitious lung sounds. Abd: Soft, nontender, nondistended. Mild CVA tenderness bilaterally. Extrem: Atraumatic in appearance without deformity. No pedal edema. Skin: Warm, dry and intact without overtly apparent rash or lesions. Neuro: AAO. Moves all 4. No deficit of speech. CNII-XII grossly intact. Psych: Appropriate mood with reactive and congruent affect. Discharge Plan Plan Patient Disposition: Left Against Medical Advice Patient condition on transfer: Stable Prescriptions/Referrals Prescriptions/Med Rec: New levofloxacin 750 mg tablet 750 mg PO QDAY 7 Days Qty: 7 0RF Continued acetaminophen [Tylenol] 325 mg Tablet 1,000 mg PO TID PRN (Reason: Pain) guaifenesin 100 mg/5 mL Liquid 200 mg PO Q4H PRN (Reason: Cough) vit-iron fum-folic ac [ Vitamin with Minerals] 28 mg iron- 800 mcg Tablet 1 tab PO DAILY loratadine [Claritin] 10 mg Tablet 10 mg PO QDAY Discontinued cephalexin 500 mg capsule 500 mg PO TID Qty: 30 0RF Referrals: Kenneth Brooks([facility])MD [Primary Care Provider] - Patient/Caregiver Discharge Instructions Education Materials: Understanding Post Sepsis Syndrome, Anatomy of the Female Urinary Tract, Urinary Tract Infections in Women, Understanding Urinary Tract ..., ED Pyelonephritis, Female (Adult) Stand Alone Forms: Patient Portal Info Letter Quality Discharge Quality Measures none MD Attestestation MD Attestation I reviewed labs, imaging, EKG, home medications and prior available records. Face to face evaluation was performed by me. I have personally examined the patient and discussed assessment and plan with the IM team. I reviewed the note above and agree with the plan with exceptions as below. Sepsis secondary to acute pyelonephritis: Patient spiked a fever overnight. Patient's pain is improving. WBC is downtrending. Given that the patient had a fever overnight, we wanted to keep the patient for today. However, she decided to leave AMA. Will send a prescription of levofloxacin.
--- NOTE | 2023-05-17 16:50 | PC.NURSE ---
Pt. leaving AMA with all belongings, rx for antibiotics sent to [facility] on [address], verbalized understanding of all risks, ambulated to private vehicle with .
== END 2023-05-17 16:50 | disposition left against medical advice (07) | DRG 872 ==
LOC: SERX 21:50 → SERHOLD 22:43 → S3NX 23:42
PROVIDERS: Nurse Practitioner Primary Care; Student in an Organized Health Care Education/Training Program; Admitting Provider Student in an Organized Health Care Education/Training Program; Emergency Provider Emergency Medicine; PCP Family Medicine; Visit Provider Student in an Organized Health Care Education/Training Program
DX: A41.9 Sepsis, unspecified organism (principal); N10 Acute pyelonephritis; E83.39 Other disorders of phosphorus metabolism; R73.9 Hyperglycemia, unspecified; Z53.29 Procedure and treatment not carried out because of patient's decision for other reasons; Z28.310 Unvaccinated for COVID-19
CPT/HCPCS: 36415; 71045; 74176; 80053; 81001; 81025; 83605; 83690; 83735; 84100; 84145; 84484; 85025; 87040; 87086; 87400; 87651; 87811; 93005; 96365; 96375; 99285; C9803; J0696; J0744; J1643; J1885; J2405; J7030; J7040; J7120; A9270

== ENCOUNTER 2024-06-23 07:58 | Emergency (ER) | payer OTHER, MEDICAID, SELFPAY ==
--- NOTE | 2024-06-23 08:03 | EKG_ITS ---
[facility] Test Date: 2024-06-23 Pat Name: SHANE PEREZ Department: Room: - Gender: Female [employer] Engineer: : 2000 Requested By: Andrea Gay Order Number: [id number] Reading MD: Andrea Gay Measurements Intervals [place] Rate: 79 P: 41 AK: 171 QRS: 55 QRSD: 94 T: 51 QT: 388 QTc: 445 Interpretive Statements SINUS RHYTHM Compared to ECG 05/16/2023 16:54:12 No significant changes /store/S0/[id number].pdf
--- NOTE | 2024-06-23 08:17 | XR_ITS ---
Examination: PA lateral chest 2 views TECHNIQUE: Upright PA lateral chest 2 views Exam date and time: June 23, 2024 0834 hours Comparison May 15, 2023 INDICATIONS: Onset chest pain today. FINDINGS: Normal heart size. Lungs are clear. The osseous structures are intact IMPRESSION: No active disease
--- NOTE | 2024-06-23 08:18 | PD.EDCHEST ---
ED Chest Pain RME/HPI General Chief Complaint: Chest Pain Stated Complaint: Chest pain, SOB since last night Time Seen by Provider: 06/23/24 08:19 Source: patient Arrival date/time: 06/23/24 07:58 24-year-old female with no known medical history presents to the emergency room with a chief complaint of 8 out of 10 left-sided chest pain that radiates down her left arm as well as shortness of breath that all began last night. Mode of arrival: ambulatory Limitations: no limitations Related Data Previous Rx's ?Medication ?Instructions ?Recorded pantoprazole 40 mg tablet,delayed 40 mg PO QDAY #90 tabs 07/15/23 release (Protonix) pantoprazole 40 mg tablet,delayed 40 mg PO QDAY #30 tabs 12/23/23 release (Protonix) Allergies Allergy/AdvReac Type Severity Reaction Status Date / Time No Known Allergies Allergy Verified 12/23/23 13:33 Review of Systems Review of Systems Systems Reviewed: All systems reviewed, normal except as documented Constitutional Constitutional: Reports system reviewed and no additional complaints, except as documented, Denies fatigue, Denies fever(s), Denies headache(s) and Denies weakness Eyes Eyes: Reports system reviewed and no additional complaints, except as documented, Denies blurry vision and Denies change in vision ENT Ears, Nose, Mouth, and Throat: Reports system reviewed and no additional complaints, except as documented, Denies otalgia, Denies headache(s), Denies nasal congestion, Denies throat swelling and Denies vertigo Cardiovascular Cardiovascular: Reports system reviewed and no additional complaints, except as documented, Reports chest pain, Reports chest pain at rest, Reports chest pain with activity, Reports dyspnea and Denies dyspnea on exertion Respiratory Respiratory: Reports system reviewed and no additional complaints, except as documented, Denies chest congestion, Denies cough, Reports dyspnea, Denies dyspnea on exertion and Denies wheezing Gastrointestinal Gastrointestinal: Reports system reviewed and no additional complaints, except as documented, Denies abdominal pain, Denies cramping, Denies nausea and Denies vomiting Genitourinary Genitourinary: Reports system reviewed and no additional complaints, except as documented Musculoskeletal Musculoskeletal: Reports system reviewed and no additional complaints, except as documented and Denies back pain Integumentary/Breasts Skin/Breast: Reports system reviewed and no additional complaints, except as documented and Denies wounds Neurologic Neurologic: Reports system reviewed and no additional complaints, except as documented, Denies confusion, Denies headache(s), Denies lack of coordination, Denies vertigo and Denies weakness Psychiatric Psychiatric: Reports system reviewed and no additional complaints, except as documented, Denies anxiety, Denies confusion, Denies depression, Denies paranoia, Denies suicidal ideation and Denies tactile hallucinations Endocrine Endocrine: Reports system reviewed and no additional complaints, except as documented and Denies fatigue Hematologic/Lymphatic Hematologic/Lymphatic: Reports system reviewed and no additional complaints, except as documented and Denies lymphadenopathy Allergic/Immunologic Allergic/Immunologic: Reports system reviewed and no additional complaints, except as documented, Denies throat swelling, Denies urticaria and Denies wheezing Past Medical History Past Medical History NEUROLOGIC: Negative Neurological Disorders or Seizures CARDIAC: Negative Cardiac Disorders or Congestive Heart Failure RESPIRATORY: Negative Chronic Obstructive Pulmonary Disease (COPD) GASTROINTESTINAL: Positive Gastrointestinal Disorders (bloody diarrhea) GENITOURINARY: Positive Genitourinary Disorders (pyelonephritis); Negative Renal Disease MUSCULOSKELETAL: Negative Musculoskeletal Disorders ENDOCRINE: Negative Endocrine Disorders, Diabetes Mellitus Type 1 or Diabetes Mellitus Type 2 HEMATOLOGIC: Negative Blood Disorders OTHER HISTORY: Positive Hospitalization (05/18/2023 sepsis/pyelonephritis); Negative Autoimmune Disease, Blood Transfusions, Anesthesia Reactions, Chicken Pox, Measles, Mumps or Cancer Family History FAMILY HISTORY: Positive Family Cardiac Disorders and Family Cancer; Negative Family Psychiatric Problems, Family Respiratory Disorders, Family Gastrointestinal Problems, Family Surgery or Family Anesthesia Reaction Surgical History SURGICAL: Positive Oral Surgery (wisdom teeth); Negative Section Social History SMOKING STATUS: Never smoker SECOND HAND EXPOSURE: No ED Exam General Limitations: Present no limitations General appearance: Present alert and in no apparent distress Head Head exam: Present atraumatic Eye Eye exam: Present normal appearance, PERRL and EOMI ENT ENT exam: Present normal exam, normal oropharynx and mucous membranes moist Neck Neck exam: Present normal inspection, full ROM and trachea midline Chest Chest inspection: Present normal inspection and symmetric chest wall rise Respiratory Respiratory exam: Present normal lung sounds bilaterally; Absent respiratory distress, wheezes, stridor, accessory muscle use or prolonged expiratory phase Cardiovascular Cardiovascular exam: Present regular rate, normal rhythm, tachycardia and normal heart sounds; Absent systolic murmur or diastolic murmur Abdominal Exam Abdominal exam: Present soft and normal bowel sounds Extremities Exam Extremities exam: Present normal inspection and full ROM Back Exam Back exam: Present normal inspection and full ROM Neurological Exam Neurological exam: Present alert, oriented X3 and CN II-XII intact Psychiatric Psychiatric exam: Present normal affect and normal mood Skin Skin exam: Present warm, dry, intact and normal color Course Quality Measures none Orders Category Date Time Status EKG (ED ONLY) *Do not use* NOW Care 06/23/24 08:03 Completed EKG (ED Only) Stat Exams 06/23/24 08:03 Draft XR chest 2V Stat Exams 06/23/24 08:17 Completed B-Type Natriuretic Peptide Stat Lab 06/23/24 08:29 Completed CBC Stat Lab 06/23/24 08:29 Completed Comprehensive Metabolic Panel Stat Lab 06/23/24 08:29 Completed Magnesium Stat Lab 06/23/24 08:29 Completed Troponin I Stat Lab 06/23/24 08:29 Completed Vital Signs Vital signs: Vital Signs Temperature 98.5 F 06/23/24 08:20 Pulse Rate 79 06/23/24 08:20 Respiratory Rate 16 06/23/24 08:20 Blood Pressure 143/88 H 06/23/24 08:20 Pulse Oximetry (%) 99 06/23/24 08:20 Oxygen Delivery Method Room Air 06/23/24 08:20 Chest Pain MDM Narrative MDM Narrative:: 24-year-old female with no known medical history presents to the emergency room with a chief complaint of 8 out of 10 left-sided chest pain that radiates down her left arm as well as shortness of breath that all began last night. Patient is hemodynamically stable and in no apparent distress Lung sounds are clear bilaterally with no abnormal breath sounds. Patient has 8 out of 10 left-sided chest pain that radiates down her left arm. There is equal strong and regular pulses to the brachial and radial. EKG shows normal sinus rhythm at [address] deviation. CBC CMP were completed and were within normal limits. Troponin was negative. There is no leukocytosis. Chest x-ray was completed and was negative for any pneumonic infiltrates. Patient was educated to follow-up with primary care provider and return to the emergency room for any evidence of worsening signs or symptoms Patient data External records reviewed:: [facility] previous records Clinical information provided by:: patient Social determinants that could affect healthcare access:: none Patient has the following chronic illnesses:: No chronic illness How is presenting disease/condition affected by chronic disease/condition?: no chronic disease Evaluation data The following diagnostics were reviewed and interpreted by me:: lab results and radiology exam(s) Lab and/or radiology exams considered but not ordered:: Labs and radiology exams considered and ordered Interpretation Summary: Chest [id number]: Normal heart size. Lungs are clear. The osseous structures are intact IMPRESSION: No active disease Medications / Prescriptions Medications or Prescriptions considered but not ordered:: No medication given Medication administrations:: No medication given Consultations Consultation(s) initiated? (list below): No Diagnosis Chest Pain Differential Diagnosis: stable angina, atypical chest pain, st elevation myocardial infarction, costochondritis, chest pain and other (Community-acquired pneumonia) Most likely diagnosis given after review of the tests above:: Chest pain Admission Indicated Admission indicated?: not indicated Admission Request Was there a request for admission?: No Disposition Plan Disposition Plan: Discharge Discharge Attestation Discharge Attestation: The patient and all family members were given an opportunity to ask questions and understood the discharge instructions. Discharge instructions specifically effects, indications for sooner follow up or return to the emergency department, and the expected course of current diagnosis. Patient condition: Stable Discharge Plan Plan Patient Disposition: HOME (Self Care) Disposition Comment: Stable Prescriptions/Referrals Prescriptions/Med Rec: No Action pantoprazole [Protonix] 40 mg Tablet,Delayed Release (Dr/Ec) 40 mg PO QDAY Qty: 90 0RF pantoprazole [Protonix] 40 mg tablet,delayed release (DR/EC) 40 mg PO QDAY Qty: 30 0RF Referrals: Huma Blankenship [Primary Care Provider] - In 1 week Problem List Clinical Impression: Chest pain, non-cardiac Patient/Caregiver Discharge Instructions Education Materials: ED Chest Pain, Noncardiac Additional Instructions: Please follow-up with your primary care provider in the next 24 to 48 hours. Your cardiac workup today was within normal limits and there was no acute findings. Your EKG was normal your cardiac markers were normal and at this point this pain that you are having is not cardiac related. Your chest x-ray that was completed was negative for any pneumonia. Please continue to follow-up with your primary care provider and return to the emergency room for any evidence of worsening signs or symptoms Print Language: [place] Stand Alone Forms: Jacquelin Award Info., Work/School Release, Patient Portal Info Letter JOHN/LIZBETH Supervising Physician JOHN/LIZBETH Supervising Physician: Dr. CONTRERAS
[2024-06-23 08:20] VITALS: BP 143/88; PULSE 79; RESP 16; TEMP 36.9; O2SAT 99; BMI 29.8
[2024-06-23 09:06] LABS: Basophils % (Auto) 0 % (0-2.5); Eosinophils # (Auto) 0.1 Thou/mm3 (0.0-0.5); Eosinophils % (Auto) 1 % (0-10); Immature Granulocytes % (Auto) 0 % (0-0); Immature Granulocytes Auto 0.03 Thou/mm3 (0.00-0.00); Lymphocytes # (Auto) 1.5 Thou/mm3 (1.0-4.8); Lymphocytes % (Auto) 20 % (10-50); Mean Corpuscular HGB Conc 32.5 g/dl (31.0-37.0); Mean Corpuscular Volume 83 fL (80-100); Monocytes # (Auto) 0.6 Thou/mm3 (0.0-0.8); Monocytes % (Auto) 8 % (0-12); Neutrophils # (Auto) 5.1 Thou/mm3 (1.8-7.7); Neutrophils % (Auto) 70 % (37-80); Nucleated Red Blood Cell % 0 /100 WBC (0); Platelet Count 356 Thou/mm3 (140-440); RDW Standard Deviation 40.8 fL (36.4-46.3); Red Blood Count 4.81 Miln/mm3 (4.00-5.20); White Blood Count 7.2 Thou/mm3 (3.6-11.0)
[2024-06-23 09:22] LABS: B-Type Natriuretic Peptide < 20 pg/mL (0-100)
[2024-06-23 09:25] LABS: Alanine Aminotransferase 12 U/L (10-49); Albumin, Serum 4.4 gm/dL (3.5-5.0); Albumin/Globulin Ratio 1.8 (1.2-2.2); Alkaline Phosphatase 88 U/L (46-116); Anion Gap 8 (7-16); Aspartate Amino Transferase 14 U/L (0-34); BUN/Creatinine Ratio 13 Ratio (12-20); Bilirubin,Total 0.6 mg/dL (0.3-1.2); Blood Urea Nitrogen 9 mg/dL (9-23); Carbon Dioxide 25.8 mMol/L (20.0-31.0); Chloride 106 mMol/L (98-107); Creatinine (Component) 0.7 mg/dL (0.6-1.3); Estimated Creatinine Clearance 161.2 mL/min (>60); Globulin 2.4 gm/dL (2.3-3.5); Glucose 89 mg/dL (74-106); Magnesium 2.1 mg/dL (1.6-2.6); Osmolality,Calculated 277 (275-295); Potassium 4.2 mMol/L (3.4-5.1); Sodium 140 mMol/L (136-145); Total Protein 6.8 gm/dL (5.7-8.2); Troponin I < 0.002 ng/mL (0.0-0.045); eGFR > 60 See Note
== END 2024-06-23 10:10 | disposition home or self-care (01) ==
PROVIDERS: Nurse Practitioner Family; Emergency Provider Emergency Medicine; PCP Nurse Practitioner Family
DX: R07.89 Other chest pain (principal)
CPT/HCPCS: 36415; 71046; 80053; 83735; 83880; 84484; 85025; 93005; 99283